=== PATIENT | male | born 1960 | race Caucasian/White ===

== ENCOUNTER 2023-06-30 06:12 | Day surgery (SDC) | payer OTHER ==
[2023-06-29 13:06] LABS: BASOPHILS # (AUTO) 0.1 X10'3 (0-0.2); BASOPHILS % (AUTO) 1.3 % (0-1); EOSINOPHILS # (AUTO) 0.5 X10'3 (0-0.9); EOSINOPHILS % (AUTO) 7.6 % (0-6); HEMATOCRIT 44.4 % (42.0-52.0); HEMOGLOBIN 15.2 g/dl (14.0-17.9); LYMPHOCYTES % (AUTO) 30.8 % (21-51); MEAN CORPUSCULAR HEMOGLOBIN 32.5 PG (27.0-31.0); MEAN CORPUSCULAR HGB CONC 34.3 g/dL (33.0-36.5); MEAN CORPUSCULAR VOLUME 94.6 FL (78-98); MEAN PLATELET VOLUME 8.8 FL (7.4-10.4); MONOCYTES # (AUTO) 0.7 X10'3 (0-0.9); MONOCYTES % (AUTO) 10.5 % (2-12); NEUTROPHILS # (AUTO) 3.3 X10'3 (1.8-7.7); NEUTROPHILS % (AUTO) 49.8 % (42-75); PLATELET COUNT 229 X10'3 (140-440); RED BLOOD COUNT 4.69 X10'6 (4.70-6.10); RED CELL DISTRIBUTION WIDTH 13.1 % (11.5-14.5); WHITE BLOOD COUNT 6.6 X10'3 (4.5-11.0)
[2023-06-29 13:14] LABS: APTT 25 SECONDS (22-32); PROTHROMBIN TIME 10.7 SECONDS (9.0-12.0)
[2023-06-29 13:17] LABS: ALBUMIN 3.7 G/DL (3.4-5.0); ANION GAP 11 (8-16); BLOOD UREA NITROGEN 10 MG/DL (7-18); BUN/CREATININE RATIO 10.3 (10.0-20.0); CALCIUM 9.5 MG/DL (8.5-10.1); CHLORIDE 105 MMOL/L (99-107); CREATININE 0.97 MG/DL (0.60-1.10); GLUCOSE 116 MG/DL (70-104); POTASSIUM 4.5 MMOL/L (3.5-5.1); SODIUM 143 MMOL/L (135-145); TOTAL CARBON DIOXIDE 27.1 MMOL/L (24-32); eGFR 78 ML/MIN
[2023-06-30] VITALS (15 sets, daily range): BP systolic 111–139; BP diastolic 68–85; PULSE 53–78; RESP 8–20; TEMP 97.5; O2SAT 93–100
[~2023-06-30] VITALS: Ht 172.7 cm; Wt 87.8 kg
[2023-06-30] MEDS ORDERED: METF-1203 PO (06:58)
[2023-06-30] MEDS ORDERED: LISI5TAB22 PO (06:58)
[2023-06-30] MEDS ORDERED: AMLO-708 PO (06:58)
[2023-06-30] MEDS ORDERED: ASPI-611 PO (06:58)
[2023-06-30] MEDS ORDERED: ROSU40TA22 PO (06:58)
[2023-06-30] MEDS ORDERED: CETI10CA PO (06:58)
[2023-06-30] MEDS ORDERED: CARV6.2553 PO (06:58)
[2023-06-30] MEDS: LORazepam 0.5 MG tablet PO PRN (07:10)
[2023-06-30] MEDS: diphenhydrAMINE 25mg capsule PO PRN (07:10)
[2023-06-30] MEDS: normal saline 1,000 ML IV SCH (07:10)
[2023-06-30] MEDS ORDERED: LIDOcaine 1% (10mg/ml) 2ml vial ONE (07:34)
[2023-06-30] MEDS ORDERED: heparin 1,000unit/ml 10ml vial 10 ML ONE (07:35)
[2023-06-30] MEDS ORDERED: nitroGLYCERIN 500mcg/5mL D5W 5 ML IV ONE ×2 (07:35→09:34)
[2023-06-30] MEDS ORDERED: iohexol 350MG/ML 100ml bottle IV ONE ×2 (07:35→08:36)
[2023-06-30] MEDS ORDERED: midazolam 1 mg/ML 2ml injection ONE (07:35)
[2023-06-30] MEDS ORDERED: verapamil 2.5 mg/ml inj IV ONE (07:35)
[2023-06-30] MEDS ORDERED: iohexol 350 MG/ML 50ML vial IV ONE ×4 (07:35→09:37)
[2023-06-30] MEDS ORDERED: fentaNYL/PF 50MCG/1 ML 2ML syringe ONE (07:36)
[2023-06-30] MEDS ORDERED: heparin 25,000 UNIT/250ml bag 250 ML IV ONE (08:56)
[2023-06-30] MEDS ORDERED: heparin 1,000 UNITS/NS 500ml 500 ML ONE (09:10)
[2023-06-30] MEDS ORDERED: clopidogrel 300mg tablet ONE (09:40)
[2023-06-30] MEDS ORDERED: HYDROcodone/acetaminophen 5mg/325mg tablet PO PRN (10:40)
[2023-06-30] MEDS ORDERED: HYDROcodone/acetaminophen 10/325mg tab PO PRN (10:40)
== END 2023-06-30 16:45 | disposition home or self-care (01) ==
LOC: SSTAY O 06:12
PROVIDERS: ATTEND Internal Medicine Cardiovascular Disease
DX: T82.855A Stenosis of coronary artery stent, initial encounter (principal); I25.10 Atherosclerotic heart disease of native coronary artery without angina pectoris; I25.82 Chronic total occlusion of coronary artery; I10 Essential (primary) hypertension; E78.5 Hyperlipidemia, unspecified; I25.2 Old myocardial infarction; N40.0 Benign prostatic hyperplasia without lower urinary tract symptoms; E66.9 Obesity, unspecified; Z68.29 Body mass index [BMI] 29.0-29.9, adult; E11.9 Type 2 diabetes mellitus without complications; Z79.82 Long term (current) use of aspirin; Z79.84 Long term (current) use of oral hypoglycemic drugs; Z88.8 Allergy status to other drugs, medicaments and biological substances; Z79.899 Other long term (current) drug therapy; F17.290 Nicotine dependence, other tobacco product, uncomplicated; Z72.89 Other problems related to lifestyle; Z98.61 Coronary angioplasty status; Z82.49 Family history of ischemic heart disease and other diseases of the circulatory system; Y84.0 Cardiac catheterization as the cause of abnormal reaction of the patient, or of later complication, without mention of misadventure at the time of the procedure; Y92.89 Other specified places as the place of occurrence of the external cause
CPT/HCPCS: 36415; 76937; 80048; 85025; 85347; 85610; 85730; 93005; 93458; 99152; 99153; A6258; C1874; C9600; C9601; J1644; J2250; J3010; J3490; J7030; Q0163; Q9967; A6402; C1725; C1751; C1769; C1894